=== PATIENT | male | born 1945 | race Caucasian/White ===

== ENCOUNTER 2020-07-15 06:57 | Day surgery (SDC) | payer MEDICARE ==
[~2020-07-15] VITALS: Ht 182.9 cm; Wt 78.0 kg
[~2020-07-15 06:57] MED LIST: AMLO5TAB15 PO; ASPI-543 PO; ATOR20TA PO; DABI150C5 PO; METO25TA5 PO; [UNRECOGNIZED DRUG - CODE] PO
[2020-07-15] MEDS ORDERED: LIDOCAINE 2%HCL (LOCAL ANESTH.) INJ 20ML MDV ONE (07:57)
[2020-07-15] MEDS ORDERED: fentaNYL CITRATE 100 MCG/2 ML VL ONE (08:21)
[2020-07-15] MEDS ORDERED: HEPARIN SODIUM (PORCINE) 5000 UNITS/ML 1ML VIAL ONE (08:21)
[2020-07-15] MEDS ORDERED: ANGIOMAX 250 MG VIAL IV ONE (08:21)
[2020-07-15] MEDS ORDERED: VERAPAMIL 2.5MG/ML INJ 2ML VIAL IV ONE (08:21)
[2020-07-15] MEDS ORDERED: MIDAZOLAM HCL 1MG/1ML-2 ML VIAL ONE (08:22)
[2020-07-15] MEDS ORDERED: SODIUM CHL 0.9% 0 ML ONE (08:22)
[2020-07-15] MEDS ORDERED: IODIXANOL 320MG/ML 100ML BTL IV ONE (08:29)
[2020-07-15] MEDS ORDERED: ONDANSETRON HCL 4 MG/2 ML VIAL IV PRN (09:15)
[2020-07-15] MEDS ORDERED: ACETAMINOPHEN 500 MG TAB PO PRN (09:15)
[2020-07-15] MEDS ORDERED: HYDROcodone-ACET 5/325MG TAB PO PRN (09:15)
== END 2020-07-15 11:23 | disposition home or self-care (01) ==
LOC: CATH 06:57
PROVIDERS: ATTEND Internal Medicine Cardiovascular Disease
DX: R94.39 Abnormal result of other cardiovascular function study (principal); I25.10 Atherosclerotic heart disease of native coronary artery without angina pectoris; I10 Essential (primary) hypertension; E78.5 Hyperlipidemia, unspecified; J45.909 Unspecified asthma, uncomplicated; Z79.82 Long term (current) use of aspirin; Z79.899 Other long term (current) drug therapy; Z98.890 Other specified postprocedural states; Z20.828 Contact with and (suspected) exposure to other viral communicable diseases
CPT/HCPCS: 93458; C1769; C1887; C1894; J1644; J2250; J3010; Q9967; U0003; 99152

== ENCOUNTER 2021-04-11 08:10 | Day surgery (SDC) | payer MEDICARE ==
[~2021-04-11] VITALS: Ht 182.9 cm; Wt 79.4 kg
[~2021-04-11 08:10] MED LIST changes: -AMLO5TAB15 PO; +APIX5TAB PO; -ASPI-543 PO; -DABI150C5 PO; +DIGO0.12 PO; +MET50T PO; -METO25TA5 PO; +SACU1TAB7 PO; -[UNRECOGNIZED DRUG - CODE] PO
[2021-04-11] MEDS ORDERED: MIDAZOLAM HCL 2MG/2ML 2ml VIAL (1mg/ml) IV ONE (09:15)
[2021-04-11] MEDS ORDERED: fentaNYL CITRATE 100 MCG/2 ML VL IV ONE (09:15)
[2021-04-11] MEDS ORDERED: LIDOCAINE VISCOUS 2% 15ML UD MT ONE (09:15)
[2021-04-11] MEDS ORDERED: diphenhdrAMINE HCL 50 MG/1 ML VL ONE (09:56)
[2021-04-11] MEDS ORDERED: ONDANSETRON HCL 4 MG/2 ML VIAL IV PRN (10:30)
[2021-04-11] MEDS ORDERED: ACETAMINOPHEN 500 MG TAB PO PRN (10:30)
== END 2021-04-11 12:00 | disposition home or self-care (01) ==
LOC: CATH 08:10
PROVIDERS: ATTEND Internal Medicine Cardiovascular Disease
DX: Z01.810 Encounter for preprocedural cardiovascular examination (principal); I48.91 Unspecified atrial fibrillation; I10 Essential (primary) hypertension; I34.0 Nonrheumatic mitral (valve) insufficiency; Z79.899 Other long term (current) drug therapy; Z20.822 Contact with and (suspected) exposure to COVID-19; Z98.890 Other specified postprocedural states
CPT/HCPCS: 93312; J1200; J2250; J3010; U0003; 93005; 99152